=== PATIENT | male | born 1950 | race Caucasian/White ===

== ENCOUNTER → 2017-08-28 | Outpatient (CLI) | payer BC ==
[2017-08-28 10:12] LABS: BLOOD UREA NITROGEN 18 mg/dl (7-18); CREATININE 1.32 mg/dl (0.60-1.40)
== END | disposition home or self-care (01) ==
LOC: C.LAB 06:52
PROVIDERS: ATTEND Urology
DX: R97.20 Elevated prostate specific antigen [PSA] (principal)

== ENCOUNTER → 2017-09-07 | Outpatient (CLI) | payer BC ==
[~2017-09-07] MED LIST: GADAVIST IV PRN
--- NOTE | 2017-09-08 07:46 | DIAGNOSTIC IMAGING REPORT ---
PROSTATE MRI WITH AND WITHOUT CONTRAST CLINICAL HISTORY: Rising PSA level. TECHNIQUE: Multisequence, multiplanar MR imaging of the prostate was performed before and after the intravenous administration of 7.6 cc of Gadavist. Post contrast imaging was performed utilizing dynamic enhancement. Additional postprocessing was performed on a separate [employer] workstation by the radiologist for 3-D volumetric segmentation of the prostate and contouring of region(s) of interest (DULCE) for targeting. COMPARISON: None. FINDINGS: Prostate: The prostate measures 5.1 x 4.2 x 4.7 cm cm (DynaCAD prostate boundary segmentation volume 51.48 mL). Moderate changes of benign prostatic hyperplasia. Precontrast T1 weighted imaging demonstrates no evidence of intrinsic T1 hyperintensity to suggest hemorrhage. Note is made of a 1.7 x 1.4 x 0.9 cm moderately T2 hypointense focus which demonstrates mild restricted diffusion and mildly diminished signal intensity on the ADC sequence. This is located within the left anterior aspect of the transitional zone within the base of the prostate gland. This lesion is relatively well-circumscribed. Note is also made of a 1.6 x 1.2 x 0.6 cm T2 hypointense focus which demonstrates mild restricted diffusion and mildly diminished signal intensity on the ADC sequence within the left anterior aspect of the mid gland. This lesion is circumscribed. Seminal vesicles normal. Bladder: Normal. Bowel: Visualized portion of the rectum normal. Peritoneum: No free fluid in the pelvis. Lymph nodes: No lymphadenopathy in the visualized portion of the pelvis. Vasculature: Iliac vessels patent. Abdominal wall: Normal. Osseous structures: Normal bone marrow signal intensity. IMPRESSION: 1. 1.7 x 1.4 x 0.9 cm moderately T2 hypointense focus which demonstrates mild restricted diffusion and mildly diminished signal intensity on the ADC sequence. This is located within the left anterior aspect of the transitional zone within the base of the prostate gland. This lesion is relatively well-circumscribed. This is considered a PI-RADS 3 lesion: Intermediate (the presence of clinically significant cancer is equivocal). A BPH nodule is favored however imaging follow-up or biopsy is recommended. 2. 1.6 x 1.2 x 0.6 cm T2 hypointense focus which demonstrates mild restricted diffusion and mildly diminished signal intensity on the ADC sequence within the left anterior aspect of the mid gland. This lesion is circumscribed. This is considered a PI-RADS 3 lesion: Intermediate (the presence of clinically significant cancer is equivocal). A BPH nodule is favored however imaging follow-up or biopsy is recommended. 3. Moderate benign prostatic hyperplasia. Electronically signed by: Abel Cardoso M.D. 09/08/2017 7:44 AM Dictated Date/Time: 09/07/2017 11:08 AM
== END | disposition home or self-care (01) ==
LOC: C.MRIBC 09:05
PROVIDERS: ATTEND Urology
DX: R97.20 Elevated prostate specific antigen [PSA] (principal)

== ENCOUNTER → 2017-10-15 | Outpatient (CLI) | payer BC | END | disposition home or self-care (01) | LOC: C.LAB 08:00 | PROVIDERS: ATTEND Urology | DX: R97.20 Elevated prostate specific antigen [PSA] (principal) ==